=== PATIENT | female | born 1980 | race Two or more races ===

== ENCOUNTER 2023-01-24 09:26 | Observation (INO) | payer MEDICAID, OTHER ==
[~2023-01-24] VITALS: Ht 160 cm; Wt 81.6 kg
[~2023-01-24 09:26] MED LIST: IBUP-2030 PO
== END 2023-01-24 11:34 | disposition home or self-care (01) ==
LOC: 8 EST LDRP 09:26
PROVIDERS: ADMIT Obstetrics & Gynecology; ATTEND Obstetrics & Gynecology
DX: O26.893 Other specified pregnancy related conditions, third trimester (principal); R10.30 Lower abdominal pain, unspecified; Z3A.31 31 weeks gestation of pregnancy
CPT/HCPCS: 59025; 99281; 76818; 76805; G0378 ×2; G0379